=== PATIENT | female | born 1970 | race Caucasian/White ===

== ENCOUNTER 2019-11-26 09:00 | Outpatient (RCR) | payer BC | END 2019-11-26 09:30 | disposition still patient (30) | LOC: CARDREHAB 09:00 | DX: Z48.812 Encounter for surgical aftercare following surgery on the circulatory system (principal); Z95.2 Presence of prosthetic heart valve ==

== ENCOUNTER 2020-09-10 18:48 | Emergency (ER) | payer BC ==
[2020-09-10 19:50] LABS: BASO # 0.03 (0.02-0.10); EOS # 0.12 (0.04-0.40); EOS % 0.9 % (1.0-5.0); HEMATOCRIT 52.8 % (37.0-47.0); HEMOGLOBIN 17.3 g/dL (12.5-16.0); MEAN CELL VOLUME 89 fl (78-100); MEAN CORPUSCULAR HEMOGLOBIN 29 pg (27-31); MEAN CORPUSCULAR HGB CONC 33 g/dL (33-37); MEAN PLATELET VOLUME 11.1 fl (7.4-10.4); MONO # 0.73 (0.20-0.80); NEU # 10.24 (1.40-6.50); PLATELET COUNT 216 K/mm3 (130-400); RED BLOOD COUNT 5.94 M/mm3 (4.10-5.30); RED CELL DISTRIBUTION WIDTH 15.5 % (11.5-14.5); WHITE BLOOD COUNT 13.3 K/mm3 (4.8-10.8)
[2020-09-10 20:01] LABS: ALBUMIN 4.2 g/dL (3.5-5.0)
[2020-09-10 20:02] LABS: POTASSIUM 4.2 mmol/L (3.5-5.1); SODIUM 138 mmol/L (136-145)
[2020-09-10 20:03] LABS: CALCIUM 10.5 mg/dL (8.3-10.5)
[2020-09-10 20:04] LABS: GLUCOSE 164 mg/dL (65-105); TOTAL PROTEIN 7.9 g/dL (6.4-8.3)
[2020-09-10 20:05] LABS: CARBON DIOXIDE 36 mmol/L (22-29)
[2020-09-10 20:06] LABS: TOTAL BILIRUBIN 0.7 mg/dL (0.2-1.2)
[2020-09-10 20:09] LABS: AST-SGOT 24 U/L (5-34)
[2020-09-10 20:11] LABS: ALT/SGPT 25 U/L (0-55)
[2020-09-10 20:16] LABS: PROTHROMBIN TIME 23.3 SECONDS (9.0-12.0)
[2020-09-10 20:29] LABS: D-DIMER 0.24 mg/L FEU (0.15-0.50); TROPONIN-I < 0.03 ng/mL (<0.030)
[2020-09-10 21:24] LABS: URINE APPEARANCE CLEAR; URINE BILIRUBIN NEGATIVE (NEGATIVE); URINE BLOOD NEGATIVE (NEGATIVE); URINE COLOR YELLOW; URINE KETONE NEGATIVE (NEGATIVE); URINE LEUKOCYTE ESTERASE NEGATIVE (NEGATIVE); URINE NITRATE NEGATIVE (NEGATIVE); URINE PROTEIN(semi-quant) NEGATIVE (NEGATIVE); URINE UROBILINOGEN NORMAL (NORMAL)
[2020-09-10] MEDS ORDERED: PREDNISONE20 M1 PO (21:29)
[2020-09-10] MEDS ORDERED: ZITHROMAX 250M250 MG PO (21:29)
[2020-09-11 00:04] VITALS: BP 150/88
[2020-09-11] MEDS ORDERED: XANAX0.25 M1 PO (00:07)
[2020-09-11] MEDS ORDERED: PROAIR HFA0.09 MG/AC IH (00:07)
[2020-09-11] MEDS ORDERED: EXCEDRIN MIGRA1 EACH PO (00:08)
[2020-09-11] MEDS ORDERED: LIPITOR 80MG80 MG PO (00:08)
[2020-09-11] MEDS ORDERED: KLONOPIN 0.5MG0.5 MG PO (00:10)
[2020-09-11] MEDS ORDERED: CLOPIDOGREL PO (00:10)
[2020-09-11] MEDS ORDERED: FARXIGA10 MG PO (00:12)
[2020-09-11] MEDS ORDERED: LASIX40 M1 PO (00:13)
[2020-09-11] MEDS ORDERED: NATURAL IRON65 MG PO (00:13)
[2020-09-11] MEDS ORDERED: [UNRECOGNIZED DRUG - CODE] TOP (00:13)
[2020-09-11] MEDS ORDERED: SYNTHROID175 MCG PO (00:14)
[2020-09-11] MEDS ORDERED: GLUCOPHAGE500 MG/TAB PO (00:15)
[2020-09-11] MEDS ORDERED: ZESTRIL10 M1 PO (00:15)
[2020-09-11] MEDS ORDERED: ZAROXOLYN PO (00:16)
[2020-09-11] MEDS ORDERED: METOPROLOL TAR100 M1 PO (00:17)
[2020-09-11] MEDS ORDERED: REMEDY ANTIFUNG85 GM TP (00:18)
[2020-09-11] MEDS ORDERED: PROTONIX20 M1 PO (00:19)
[2020-09-11] MEDS ORDERED: ZOFRAN4 M2 PO (00:19)
[2020-09-11] MEDS ORDERED: MIRALAX17 GM PO (00:20)
[2020-09-11] MEDS ORDERED: K-TAB20 MEQ PO (00:21)
[2020-09-11] MEDS ORDERED: LYRICA225 MG PO (00:22)
[2020-09-11] MEDS ORDERED: OZEMPIC1 MG/0.75 SQ (00:23)
[2020-09-11] MEDS ORDERED: ALDACTONE50 M1 PO (00:24)
[2020-09-11] MEDS ORDERED: ZOLOFT 100MG100 MG PO (00:24)
[2020-09-11] MEDS ORDERED: CARAFATE 1GM1 G PO (00:25)
[2020-09-11] MEDS ORDERED: ZANAFLEX4 M1 PO (00:26)
[2020-09-11] MEDS ORDERED: TRESIBA FL100 UNIT/1 SQ (00:26)
[2020-09-11] MEDS ORDERED: WARFARIN SOD5 MG PO (00:28)
== END 2020-09-10 22:42 | disposition home or self-care (01) ==
LOC: ED 18:48
PROVIDERS: Family Medicine
DX: J45.909 Unspecified asthma, uncomplicated (principal); I48.91 Unspecified atrial fibrillation; I25.10 Atherosclerotic heart disease of native coronary artery without angina pectoris; E11.9 Type 2 diabetes mellitus without complications; F17.210 Nicotine dependence, cigarettes, uncomplicated; Z86.73 Personal history of transient ischemic attack (TIA), and cerebral infarction without residual deficits; Z20.822 Contact with and (suspected) exposure to COVID-19

== ENCOUNTER 2021-12-04 18:31 | Emergency (ER) | payer BC, MEDICARE ==
[~2021-12-04 18:31] MED LIST: ALDACTONE50 M1 PO; CARAFATE 1GM1 G PO; CLOPIDOGREL PO; EXCEDRIN MIGRA1 EACH PO; FARXIGA10 MG PO; GLUCOPHAGE500 MG/TAB PO; K-TAB20 MEQ PO; KLONOPIN 0.5MG0.5 MG PO; LASIX40 M1 PO; LIPITOR 80MG80 MG PO; LYRICA225 MG PO; METOPROLOL TAR100 M1 PO; MIRALAX17 GM PO; NATURAL IRON65 MG PO; OZEMPIC1 MG/0.75 SQ; PREDNISONE20 M1 PO; PROAIR HFA0.09 MG/AC IH; PROTONIX20 M1 PO; REMEDY ANTIFUNG85 GM TP; SYNTHROID175 MCG PO; TRESIBA FL100 UNIT/1 SQ; WARFARIN SOD5 MG PO; XANAX0.25 M1 PO; ZANAFLEX4 M1 PO; ZAROXOLYN PO; ZESTRIL10 M1 PO; ZITHROMAX 250M250 MG PO; ZOFRAN4 M2 PO; ZOLOFT 100MG100 MG PO; [UNRECOGNIZED DRUG - CODE] TOP
[2021-12-04] MEDS ORDERED: CEFDINIR300 MG PO (18:41)
[2021-12-04] MEDS ORDERED: NORCO 325 MG-7.1 TA1 PO (18:42)
[2021-12-04 20:02] LABS: BASO # 0.01 K/mm3 (0.02-0.10); EOS # 0.09 K/mm3 (0.04-0.40); EOS % 1.1 % (1.0-5.0); HEMATOCRIT 32.9 % (37.0-47.0); HEMOGLOBIN 10.3 g/dL (12.5-16.0); LYMPH# 1.29 K/mm3 (1.50-4.00); MEAN CELL VOLUME 99 fl (78-100); MEAN CORPUSCULAR HEMOGLOBIN 31 pg (27-31); MEAN CORPUSCULAR HGB CONC 31 g/dL (33-37); MEAN PLATELET VOLUME 11.7 fl (7.4-10.4); NEU # 6.01 K/mm3 (1.40-6.50); PLATELET COUNT 139 K/mm3 (130-400); RED BLOOD COUNT 3.33 M/mm3 (4.10-5.30); WHITE BLOOD COUNT 8.1 K/mm3 (4.8-10.8)
[2021-12-04] MEDS ORDERED: PREDNISONE20 M1 PO ×2 (20:27→21:17)
[2021-12-04 20:53] LABS: POTASSIUM 4.1 mmol/L (3.5-5.1)
[2021-12-04 20:55] LABS: CALCIUM 9.5 mg/dL (8.3-10.5)
[2021-12-04] MEDS ORDERED: IPRATROPIUM BROM3 M1 IH (21:15)
[2021-12-04 21:36] VITALS: BP 126/51
== END 2021-12-04 21:36 | disposition home or self-care (01) ==
LOC: ED 18:31
PROVIDERS: Family Medicine
DX: J45.909 Unspecified asthma, uncomplicated (principal); I48.91 Unspecified atrial fibrillation; F17.210 Nicotine dependence, cigarettes, uncomplicated; Z86.718 Personal history of other venous thrombosis and embolism; Z98.890 Other specified postprocedural states; Z91.040 Latex allergy status; Z20.822 Contact with and (suspected) exposure to COVID-19; Z28.310 Unvaccinated for COVID-19; Z79.01 Long term (current) use of anticoagulants; Z79.02 Long term (current) use of antithrombotics/antiplatelets
CPT/HCPCS: J7512

== ENCOUNTER 2021-12-15 16:47 | Emergency (ER) | payer BC, MEDICARE ==
[~2021-12-15 16:47] MED LIST changes: +CEFDINIR300 MG PO; +IPRATROPIUM BROM3 M1 IH; +NORCO 325 MG-7.1 TA1 PO
[2021-12-15 18:33] LABS: BASO # 0.02 K/mm3 (0.02-0.10); EOS # 0.11 K/mm3 (0.04-0.40); EOS % 0.6 % (1.0-5.0); HEMATOCRIT 40.4 % (37.0-47.0); HEMOGLOBIN 13.1 g/dL (12.5-16.0); LYMPH# 2.48 K/mm3 (1.50-4.00); MEAN CELL VOLUME 90 fl (78-100); MEAN CORPUSCULAR HEMOGLOBIN 29 pg (27-31); MEAN CORPUSCULAR HGB CONC 32 g/dL (33-37); MEAN PLATELET VOLUME 11.8 fl (7.4-10.4); MONO # 1.07 K/mm3 (0.20-0.80); NEU # 14.95 K/mm3 (1.40-6.50); PLATELET COUNT 229 K/mm3 (130-400); RED CELL DISTRIBUTION WIDTH 16.2 % (11.5-14.5)
[2021-12-15 18:47] LABS: ALBUMIN 3.8 g/dL (3.5-5.0); POTASSIUM 3.5 mmol/L (3.5-5.1)
[2021-12-15 18:49] LABS: CALCIUM 9.6 mg/dL (8.3-10.5)
[2021-12-15 18:50] LABS: TOTAL PROTEIN 6.6 g/dL (6.4-8.3)
[2021-12-15 18:52] LABS: TOTAL BILIRUBIN 0.3 mg/dL (0.2-1.2)
[2021-12-15 19:17] LABS: URINE APPEARANCE CLEAR; URINE BILIRUBIN NEGATIVE (NEGATIVE); URINE BLOOD NEGATIVE (NEGATIVE); URINE COLOR YELLOW; URINE KETONE NEGATIVE (NEGATIVE); URINE NITRATE NEGATIVE (NEGATIVE); URINE PROTEIN(semi-quant) NEGATIVE (NEGATIVE); URINE UROBILINOGEN NORMAL (NORMAL)
[2021-12-15 19:18] LABS: URINE LEUKOCYTE ESTERASE NEGATIVE (NEGATIVE); URINE WBC 0-1 /hpf (0-3)
[2021-12-15 21:03] VITALS: BP 112/59
[2021-12-15] MEDS ORDERED: TIZANIDINE HYDRO4 M1 PO (21:37)
[2021-12-15] MEDS ORDERED: CYMBALTA60 M1 PO (21:37)
[2021-12-15] MEDS ORDERED: TRAMADOL 50 MG TAB PO (21:38)
[2021-12-15] MEDS ORDERED: TRESIBA100 UNIT/1 SC (21:40)
[2021-12-16] MEDS ORDERED: FUROSEMIDE40 MG PO (07:26)
[2021-12-16] MEDS ORDERED: PREGABALIN225 MG PO (07:35)
[2021-12-16] MEDS ORDERED: GLUCOPHAGE PO (07:39)
[2021-12-16] MEDS ORDERED: OZEMPIC1 MG/0.71 SQ (07:40)
[2021-12-16] MEDS ORDERED: PANTOPRAZOLE SO40 MG PO (07:44)
== END 2021-12-15 21:42 | disposition other institution (70) ==
LOC: ED 16:47
PROVIDERS: Family Medicine
DX: A41.9 Sepsis, unspecified organism (principal); N17.9 Acute kidney failure, unspecified; Z91.040 Latex allergy status; Z28.310 Unvaccinated for COVID-19
CPT/HCPCS: J1885; J2270; J2405; J3490; J7030; Q9967

== ENCOUNTER 2021-12-15 20:02 | Inpatient (IN) | payer BC, MEDICARE ==
[~2021-12-15] VITALS: Ht 154.9 cm; Wt 96.5 kg
[2021-12-15 21:18] LABS: TROPONIN-I < 0.030 ng/mL (<0.030)
[2021-12-15] MEDS ORDERED: CYMBALTA60 M1 PO (21:37)
[2021-12-15] MEDS ORDERED: TIZANIDINE HYDRO4 M1 PO (21:37)
[2021-12-15] MEDS ORDERED: TRAMADOL 50 MG TAB PO (21:38)
[2021-12-15] MEDS ORDERED: TRESIBA100 UNIT/1 SC (21:40)
[2021-12-15 22:12] VITALS: BP 120/41
[2021-12-15 22:45] LABS: PROTHROMBIN TIME 32.5 SECONDS (9.0-12.0)
[2021-12-16 01:43] VITALS: BP 120/61
[2021-12-16 05:04] VITALS: BP 126/70
[2021-12-16 05:32] VITALS: BP 126/70
[2021-12-16] MEDS ORDERED: FUROSEMIDE40 MG PO (07:26)
[2021-12-16] MEDS ORDERED: PREGABALIN225 MG PO (07:35)
[2021-12-16] MEDS ORDERED: GLUCOPHAGE PO (07:39)
[2021-12-16] MEDS ORDERED: OZEMPIC1 MG/0.71 SQ (07:40)
[2021-12-16] MEDS ORDERED: PANTOPRAZOLE SO40 MG PO (07:44)
[2021-12-16 07:45] LABS: BASO # 0.03 K/mm3 (0.02-0.10); EOS % 0.6 % (1.0-5.0); HEMOGLOBIN 11.4 g/dL (12.5-16.0); LYMPH# 2.63 K/mm3 (1.50-4.00); MEAN CELL VOLUME 93 fl (78-100); MEAN CORPUSCULAR HEMOGLOBIN 29 pg (27-31); MEAN CORPUSCULAR HGB CONC 32 g/dL (33-37); MEAN PLATELET VOLUME 12.1 fl (7.4-10.4); MONO # 1.08 K/mm3 (0.20-0.80); NEU # 12.25 K/mm3 (1.40-6.50); PLATELET COUNT 184 K/mm3 (130-400); RED BLOOD COUNT 3.88 M/mm3 (4.10-5.30); RED CELL DISTRIBUTION WIDTH 16.5 % (11.5-14.5); WHITE BLOOD COUNT 16.2 K/mm3 (4.8-10.8)
[2021-12-16 07:52] LABS: ALBUMIN 3.3 g/dL (3.5-5.0)
[2021-12-16 07:53] LABS: POTASSIUM 3.5 mmol/L (3.5-5.1)
[2021-12-16 07:54] LABS: CALCIUM 8.7 mg/dL (8.3-10.5)
[2021-12-16 07:55] LABS: TOTAL PROTEIN 5.7 g/dL (6.4-8.3)
[2021-12-16 07:57] LABS: TOTAL BILIRUBIN 0.3 mg/dL (0.2-1.2)
[2021-12-16 09:27] VITALS: BP 125/70
== END 2021-12-16 13:07 | disposition home or self-care (01) | DRG 872 ==
LOC: MED/SURG 20:02
PROVIDERS: ADMIT Family Medicine
DX: A41.9 Sepsis, unspecified organism (principal); N17.9 Acute kidney failure, unspecified; I50.32 Chronic diastolic (congestive) heart failure; I13.0 Hypertensive heart and chronic kidney disease with heart failure and stage 1 through stage 4 chronic kidney disease, or unspecified chronic kidney disease; K21.9 Gastro-esophageal reflux disease without esophagitis; E03.9 Hypothyroidism, unspecified; E11.22 Type 2 diabetes mellitus with diabetic chronic kidney disease; E11.65 Type 2 diabetes mellitus with hyperglycemia; I48.0 Paroxysmal atrial fibrillation; N18.9 Chronic kidney disease, unspecified; I25.10 Atherosclerotic heart disease of native coronary artery without angina pectoris; J44.9 Chronic obstructive pulmonary disease, unspecified; I73.9 Peripheral vascular disease, unspecified; M79.7 Fibromyalgia; M47.892 Other spondylosis, cervical region; M47.896 Other spondylosis, lumbar region; F41.9 Anxiety disorder, unspecified; G47.33 Obstructive sleep apnea (adult) (pediatric); R53.81 Other malaise; E78.5 Hyperlipidemia, unspecified; Z79.82 Long term (current) use of aspirin; Z79.4 Long term (current) use of insulin; Z79.01 Long term (current) use of anticoagulants; Z79.891 Long term (current) use of opiate analgesic; Z79.52 Long term (current) use of systemic steroids; Z95.2 Presence of prosthetic heart valve; Z86.718 Personal history of other venous thrombosis and embolism; Z86.73 Personal history of transient ischemic attack (TIA), and cerebral infarction without residual deficits; Z88.0 Allergy status to penicillin; M19.90 Unspecified osteoarthritis, unspecified site
CPT/HCPCS: J0696; J7030